=== PATIENT | male | born 1995 ===

== ENCOUNTER 2017-04-10 18:10 | Emergency (ER) | payer SELFPAY ==
[2017-04-10 18:15] VITALS: TEMP 98.2; O2SAT 99
--- NOTE | 2017-04-10 18:46 | ED PDOC ---
Lower Extremity Pain/Injury History Per: Patient History/Exam Limitations: language barrier (friend translating ) Onset/Duration Of Symptoms: Mins Current Symptoms Are (Timing): Still Present Severity: Moderate Pain Scale Rating Of: 7 Additional Complaint(s): 22 YO Male with no sig PMH presents to [facility] ED after a fall. Pt was skateboarding when he fell on his ankle. No LOC, and only site of trauma per pt was in his R ankle. Pt endorses pain with movement of the ankle, moving his knees and toes without any difficulties. Denies headache, blurry vision, chest pain, dyspnea, n/v/d/c. - Ankle/Foot Description Of Injury: Fell, Twisted Currently Unable To: Bear Weight, Bend Or Move (pain with movement of the ankle ) Alleviating Factor(s): Ice Therapy - Risk Factors DVT Risk Factors: Pos: None <Katelin Gomez - Last Filed: 04/10/17 20:52> <Shelia Marsh - Last Filed: 04/11/17 13:16> Time Seen by Provider: 04/10/17 18:26 Chief Complaint (Nursing): Lower Extremity Problem/Injury Supervising Attending Note - Supervising Attending Note The Documented history was done by the: Physician Health Insurance Assessor, Attending Physician The documented physical exam was done by the: Physician Health Insurance Assessor, Attending Physician The documented procedures were done by the: Physician Health Insurance Assessor, Attending Physician - Attestation: I have personally seen and examined this patient.: Yes I have fully participated in the care of the patient.: Yes I have reviewed all pertinent clinical information, including history, physical exam and plan: Yes <Shelia Marsh - Last Filed: 04/11/17 13:16> Past Medical History Reviewed: Historical Data, Nursing Documentation, Vital Signs Vital Signs: Last Vital Signs Temp 98.2 F 04/10/17 18:12 Pulse 61 04/10/17 18:12 Resp 16 04/10/17 18:12 BP 146/78 04/10/17 18:12 Pulse Ox 99 04/10/17 18:12 - Surgical History Surgical History: No Surg Hx - Family History Family History: States: Unknown Family Hx - Living Arrangements Living Arrangements: Alone - Social History Current smoker - smoking cessation education provided: Yes Alcohol: Occasional Drugs: Cannabis <Katelin Gomez - Last Filed: 04/10/17 20:52> Vital Signs: Last Vital Signs Temp 98.2 F 04/10/17 18:12 Pulse 70 04/10/17 21:11 Resp 18 04/10/17 21:11 BP 110/70 04/10/17 21:11 Pulse Ox 99 04/10/17 21:11 <Shelia Marsh A - Last Filed: 04/11/17 13:16> - Home Medications Home Medications: Ambulatory Orders Medication Instructions Recorded Naproxen [Naprosyn] 500 mg PO Q12 #14 tab 04/10/17 - Allergies Allergies/Adverse Reactions: Allergies Allergy/AdvReac Type Severity Reaction Status Date / Time No Known Allergies Allergy Verified 04/10/17 18:15 Wells Criteria for PE - Wells Criteria for Pulmonary Embolism Clinical Signs and Symptoms of DVT: No P.E is #1 Diagnosis, or Equally Likely: No Heart Rate >100: No Immobilization at least 3 days;Surgery previous 4 weeks: No Previous, objectively diagnosed PE or DVT: No Hemoptysis: No Malignancy w/treatment within 6 months, or palliative: No Total Score: 0 <JasonKatelin mendosa - Last Filed: 04/10/17 20:52> Review of Systems ROS Statement: Except As Marked, All Systems Reviewed And Found Negative Cardiovascular: Negative for: Chest Pain, Palpitations Respiratory: Negative for: Cough, Shortness of Breath Gastrointestinal: Negative for: Nausea, Vomiting, Abdominal Pain Genitourinary Male: Negative for: Dysuria, Frequency Neurological: Negative for: Weakness, Numbness, Headache, Dizziness <JasonKatelin Last Filed: 04/10/17 20:52> Physical Exam - Reviewed Nursing Documentation Reviewed: Yes Vital Signs Reviewed: Yes - Physical Exam Appears: Positive for: Well, Non-toxic, No Acute Distress Head Exam: Positive for: ATRAUMATIC, NORMAL INSPECTION, NORMOCEPHALIC Skin: Positive for: Normal Color, Warm, DRY Eye Exam: Positive for: EOMI, Normal appearance, PERRL ENT: Positive for: Normal ENT Inspection Neck: Positive for: Normal, Painless ROM Cardiovascular/Chest: Positive for: Regular Rate, Rhythm Respiratory: Positive for: CNT, Normal Breath Sounds Gastrointestinal/Abdominal: Positive for: Normal Exam, Bowel Sounds, Soft Back: Positive for: Normal Inspection Extremity: Positive for: Tenderness (tenderness to palpation of the R ankle), Deformity (notible deformity of the R ankle with small abrasion and edema, erythema. ), Swelling (around the R ankle) Neurologic/Psych: Positive for: Alert, Oriented <Katelin Gomez - Last Filed: 04/10/17 20:52> - ECG O2 Sat by Pulse Oximetry: 99 - Progress ED Course And Treament: 22 YO male with no sig PMH presents to [facility] ED after fall on R ankle. -morphine, toradol administered -xray of the RLE --Xray appreciated, no fractures noted Likely ankle strain and sprain Pt seen by podiatry, and ankle put in a splint will follow up in podiatry clinic. D/c home with naproxen. <Katelin Gomez - Last Filed: 04/10/17 20:52> Disposition - Patient ED Disposition Is Patient to be Admitted: No - Disposition Disposition: Routine/Home Disposition Time: 20:55 <Katelin Gomez - Last Filed: 04/10/17 20:52> - Patient ED Disposition Is Patient to be Admitted: Transfer of Care Counseled Patient/Family Regarding: Studies Performed, Diagnosis - Disposition Disposition: Transfer of Care Patient Signed Over To: Lukas Romero <Shelia Marsh - Last Filed: 04/11/17 13:16> - Clinical Impression Clinical Impression: Ankle sprain and strain - Disposition Condition: STABLE Additional Instructions: Please call [phone] and ask for Podiatry Clinic to schedule Podiatry follow up appointment Podiatry clinic is on Thursday afternoons 12-3 Prescriptions: Naproxen [Naprosyn] 500 mg PO Q12 #14 tab Instructions: Ankle Sprain (ED) Forms: [employer] (Ethiopian)
--- NOTE | 2017-04-10 19:31 | ED PDOC ---
- ECG O2 Sat by Pulse Oximetry: 99 (RA) Pulse Ox Interpretation: Normal Medical Decision Making Medical Decision Making: Time: 1899 --Patient endorsed from Dr. Marsh to me. Scribe Attestation: Documented by Julia Paris, acting as a scribe for Lukas Romero MD. Provider Scribe Attestation: All medical record entries made by the Scribe were at my direction and personally dictated by me. I have reviewed the chart and agree that the record accurately reflects my personal performance of the history, physical exam, medical decision making, and the department course for this patient. I have also personally directed, reviewed, and agree with the discharge instructions and disposition. Disposition - Clinical Impression Clinical Impression: Ankle sprain and strain - POA Present On Arrival: None - Disposition Disposition: Routine/Home Disposition Time: 20:00 Condition: STABLE Additional Instructions: Please call [phone] and ask for Podiatry Clinic to schedule Podiatry follow up appointment Podiatry clinic is on Thursday afternoons 12-3 Prescriptions: Naproxen [Naprosyn] 500 mg PO Q12 #14 tab Instructions: Ankle Sprain (ED) Forms: [employer] (Serbian)
[2017-04-10 21:13] VITALS: BP 110/70; PULSE 70; RESP 18
--- NOTE | 2017-04-11 10:44 | RAD ---
PROCEDURE: Right Ankle Radiographs. HISTORY: ankle injury pain swelling COMPARISON: None FINDINGS: BONES: Normal. No fracture. JOINTS: Normal. No osteoarthritis. Ankle mortise maintained. Talar dome intact. Subtalar joint is within normal limits. SOFT TISSUES: Mild soft tissue swelling. OTHER FINDINGS: None. IMPRESSION: No fracture. No dislocation. Mild soft tissue swelling consistent with ankle sprain.
--- NOTE | 2017-04-11 22:24 | CP.PCM.CON ---
History of Present Illness - History of Present Illness History of Present Illness: Podiatry Consult Note - Dr. Galeana 22 year old male unremarkable PMHx seen in ED concerning pain in right ankle. Patient seen resting comfortably, AAOx3 and NAD. Patient is accompanied by friend at bedside. Patient states earlier today he was skateboarding when he fell onto the inside of his ankle. Denies loss of consciousness. Patient reports 7/10 pain, unable to walk on his right foot. Patient denies numbness, burning, or tingling. Patient denies N/V/F/D/C/SOB/calf pain. Offers no other pedal complaints at this time Review of Systems - Review of Systems All systems: reviewed and no additional remarkable complaints except (as per HPI ) Past Patient History - Infectious Disease Hx of Infectious Diseases: None - Past Social History Alcohol: Occasional Drugs: Cannabis - PSYCHIATRIC Hx Substance Use: No Meds Home Medications: Home Medication List Medication Instructions Recorded Confirmed Type Naproxen [Naprosyn] 500 mg PO Q12 #14 tab 04/10/17 Rx Allergies/Adverse Reactions: Allergies Allergy/AdvReac Type Severity Reaction Status Date / Time No Known Allergies Allergy Verified 04/10/17 18:15 Physical Exam - Constitutional Appears: Well, Non-toxic, No Acute Distress - Extremities Exam Additional comments: RLE focused physical exam: VASC: DP and PT pulses palpable 2/4. CFT <3 seconds to all digits x5. Temperature gradient within normal limits. Hair growth appreciated. Nonpitting perimalleolar edema noted NEURO: Gross sensation intact DERM: 0.5 x 0.5 cm abrasion noted to medial malleolus. No ecchymosis noted. ORTHO: Pain on palpation medial malleolus. Pain on palpation deltoid ligaments. Pain upon active and passive plantarflexion and inversion. No pain on palpation lateral malleolus. No pain upon calcaneal squeeze. Pain on palpation anterior ankle joint. Pain upon ankle joint ROM. - Neurological Exam Neurological exam: Alert, Oriented x3 - Psychiatric Exam Psychiatric exam: Normal Affect, Normal Mood Results - Vital Signs Recent Vital Signs: Last Vital Signs Temp 98.2 F 04/10/17 18:12 Pulse 70 04/10/17 21:11 Resp 18 04/10/17 21:11 BP 110/70 04/10/17 21:11 Pulse Ox 99 04/10/17 21:11 Assessment & Plan - Assessment and Plan (Free Text) Assessment: 22 year old male with RLE eversion ankle sprain 2/2 mechanical fall Plan: Patient seen and evaluated at bedside Discussed with attending, Dr. Kervin Olivarez ankle XR reviewed - widening of medial clear space, ankle mortise misaligned, no acute fracture noted Posterior splint applied to RLE and crutches dispensed Patient to remain NWB RLE in posterior splint with the assistance of crutches Recommend RICE Patient to keep dressing clean/dry/intact until appointment with Dr. Galeana Patient to follow up with Dr. Galeana in [facility] podiatry clinic next Thursday, Stable from podiatry standpoint Thank you for allowing podiatry to partake in the care of this patient
== END 2017-04-10 21:12 | disposition home or self-care (01) ==
LOC: H.ER 18:10
DX: S93.401A Sprain of unspecified ligament of right ankle, initial encounter (principal); V00.131A Fall from skateboard, initial encounter; Y92.89 Other specified places as the place of occurrence of the external cause
CPT/HCPCS: 29515; 73600; 96374; 96376; 99284; J1885; J2270